=== PATIENT | female | born 1975 | race Caucasian/White ===

== ENCOUNTER 2016-06-16 11:38 | Emergency (ER) | payer OTHER ==
--- NOTE | 2016-06-16 12:53 | DIAGNOSTIC IMAGING REPORT ---
PROCEDURE: CT HEAD WITHOUT CONTRAST INDICATION: Weakness and right mid extremity paresthesia. TECHNIQUE: Noncontrast axial images with sagittal and coronal reformations. COMPARISON: None. FINDINGS: Allowing for mild motion, brain and ventricles are normal. No evidence of an acute process or hemorrhage. Sinuses and mastoids are normal. IMPRESSION: 1. Negative head CT. 2. Findings discussed with CUONG Tenorio at [address] scans at this facility use dose modulation, iterative reconstruction, and/or weight-based dosing when appropriate to reduce radiation dose to as low as reasonably achievable.
--- NOTE | 2016-06-16 14:26 | ED CLINICAL REPORT ---
Clinical Report - Physicians/Mid Levels [facility] [address] [place] [address] 06/16/2016 11:39 Patient: ALLEY SUTTON Time Seen: 1207; initial patient contact, initial documentation, patient care assumed. Arrived- By ambulance. Historian- patient. HISTORY OF PRESENT ILLNESS Chief Complaint: WEAKNESS. The patient has had new onset of localized weakness of the right arm (mild), right hand (mild), right leg (mild) and right foot (mild). No numbness, tingling, impaired speech or swallowing or visual disturbance. No recent fall. The patient has had difficulty walking. This started today and is still present. (none). No dizziness, altered mental status, seizure or blackouts. Usually is alert and oriented X3 and has normal mobility. Similar symptoms previously: None. Recent medical care: Not recently seen/assessed. REVIEW OF SYSTEMS No fever, headache, head injury, chest pain or difficulty breathing. No abdominal pain, diarrhea or vomiting. She has had mildly enlarged left neck, left axillary and left inguinal lymph nodes (made appt this week with her pcp for swollen glands). All systems otherwise negative, except as recorded above. PAST HISTORY See nurses notes. ( PROBLEMS: Anxiety Reaction. Asthma. STD - Sexually Transmitted Disease. Nerve Root Compression. Myofascial Strain. Insomnia. Depression. Immunizations. --11:43 Aliyah Moses, R.N. ADDITIONAL SURGERIES: Cholecystectomy. Tonsillectomy. --11:43 Aliyah Moses, R.N.). SOCIAL HISTORY Light tobacco smoker. Occasional alcohol use. History of occasional drug use: marijuana. No recent travel. Is a local resident. FAMILY HISTORY Diabetes in first-degree relative. cva. ADDITIONAL NOTES The nursing notes have been reviewed with agreement regarding the chief complaint, HPI, ROS, PMH and patient medications and allergies. PHYSICAL EXAM Vital Signs: 06/16/2016 11:42 BP: 129/78. HR: 65. RR: 18. O2 saturation: 100%. Temp: 98.8 F. Pain level now: 0/10. Have been reviewed as normal and appear to be correct. Appearance: Alert. No acute distress. Head: Head atraumatic. Eyes: Pupils equal, round and reactive to light. ENT: Normal ENT inspection. Airway intact. Pharynx normal. Neck: Normal inspection. Neck supple. CVS: Normal heart rate and rhythm. Heart sounds normal. Pulses normal. Respiratory: No respiratory distress. Breath sounds normal. Abdomen: Soft and nontender. No organomegaly. Mildly obese. Back: Normal inspection. Skin: Skin warm and dry. Normal skin color. No rash. Normal skin turgor. Extremities: Extremities exhibit normal ROM. No lower extremity edema. Neuro: Alert. Oriented X 3. Mood/affect normal. Speech normal. Cranial nerves normal (as tested). No cerebellar findings. No motor deficit. No sensory deficit. Reflexes normal. LABS, X-RAYS, AND EKG CT Head: No acute disease. (IMPRESSION: 1. Negative head CT. 2. Findings discussed with CUONG Tenorio at [address] scans at this facility use dose modulation, iterative reconstruction, and/or weight-based dosing when appropriate to reduce radiation dose to as low as reasonably achievable. Electronically Final signed by:Oscar Parsons MD 06/16/2016 12:50:08 PM). The study was interpreted by the radiologist and discussed with the radiologist. Interpretation time: 12:52. Laboratory Tests: Serum Qualitative: (EDGAR: 06/16/2016 13:25) ( [facility] 06/16/2016 14:01) Final results Test Result Flag Units (Reference) , SERUM NEGATIVE CBC w Diff: (EDGAR: 06/16/2016 13:25) ( MsgRcvd 06/16/2016 13:38) Final results Test Result Flag Units (Reference) WHITE BLOOD COUNT 12.2 H K/uL (4.5-11.5) RED BLOOD COUNT 4.30 M/uL (4.00-5.20) HEMOGLOBIN 13.3 gm/dL (12.0-16.0) HEMATOCRIT 39.5 % (36.0-46.0) MEAN CELL VOLUME 92 fL (80-100) MEAN CORPUSCULAR HGB 31 pg (26-34) MEAN CORPUSCULAR HGB CONC 34 g/dL (31-37) RED CELL DISTRIBUTION WIDTH 12.9 % (11.6-14.8) PLATELET COUNT 285 K/uL (150-400) NEUTROPHIL % 68.6 % (50-75) LYMPH % 24.1 L % (25-40) MONO % 4.5 % (3-14) EOSINOPHIL % 2.4 % (0-4) BASOPHIL % 0.4 % (0-2) CMP: (EDGAR: 06/16/2016 13:25) ( MsgRcvd 06/16/2016 14:12) Final results Test Result Flag Units (Reference) GLUCOSE 90 mg/dL (70-110) BUN 8 mg/dL (7-18) CREATININE 0.7 mg/dL (0.6-1.3) Estimated GFR >60 mL/min Estimated GFR- >60 mL/min Note: Persistent reduction over 3 months in eGFR<60 mL/min/1.73 m2 defines CKD. Patients with eGFR values>=60 mL/min/1.73 m2 may also have CKD if evidence ofpersistent proteinuria. Additional information may be foundat www.kidney.org. SODIUM 144 mmol/L (136-145) POTASSIUM 3.9 mmol/L (3.5-5.1) CHLORIDE 110 H mmol/L (98-107) CARBON DIOXIDE 23 mmol/L (21-32) CALCIUM 8.0 L mg/dL (8.5-10.1) TOTAL PROTEIN 6.5 g/dL (6.4-8.2) ALBUMIN 3.1 L g/dL (3.3-5.0) BILIRUBIN, TOTAL 0.1 mg/dL (0.0-1.0) ALKALINE PHOSPHATASE 72 U/L (46-116) AST (SGOT) 12 L U/L (15-37) ALT (SGPT) 14 U/L (12-78) . PROGRESS AND PROCEDURES Course of Care: nurse reporting pt is on verge of panic attack. 06/16/2016 12:42 BP: 125/59. HR: 66. RR: 12. O2 saturation: 100%. Patient counseled in person regarding the patient's stable condition, test results and diagnosis. 14:22. Differential Diagnosis: Other possible considerations: cva, tia, electrolyte imbalance. Above considerations are based on history, physical exam, reassessment, laboratory data and other information. Differential diagnosis was discussed with patient. Disposition: Discharged home in good and improved condition (14:25). Condition: good and stable. CLINICAL IMPRESSION Acute weakness of the right upper extremity and right lower extremity. Anxiety reaction. No hyperventilation. INSTRUCTIONS Warnings: GENERAL WARNINGS: Return or contact your physician immediately if your condition worsens or changes unexpectedly, if not improving as expected, or if other problems arise. Specifically return if problem worsens. Follow-up: Follow up with your doctor as scheduled even if well. Summary of care provided to patient. Understanding of the discharge instructions verbalized by patient. (Electronically signed by Stephie Stokes A.R.N.P. 06/16/2016 14:58)
--- NOTE | 2016-06-16 14:26 | ED ORDER SUMMARY ---
..... Patient: ALLEY SUTTON OrderSheet [facility] VisitID: [id number] [address] [place] [address] 40y, F Registration Date/Time: 06/16/2016 ORDER SHEET Weight: 113.3 kg (stated) Allergies: E-Mycin GENERAL ORDERS: CT Head wo Cont Urgent (12:17 06/16/2016 HBivens A.R.N.P.) (Ack 12:19 TBergley) (12:51 MWinterer R.N.) CBC w Diff Urgent (12:17 06/16/2016 HBivens A.R.N.P.) (Ack 12:19 TBergley) (13:15 TBergley) CMP Urgent (12:17 06/16/2016 HBivens A.R.N.P.) (Ack 12:19 TBergley) (13:15 TBergley) Serum Qualitative Urgent (12:17 06/16/2016 HBivens A.R.N.P.) (Ack 12:19 TBergley) (13:15 TBergley) MEDICATION ORDERS: IV FLUIDS: IV NS : initial bolus 1000 mL (1000 mL/hr), then none - (NOW) (12:17 06/16/2016 HBivens A.R.N.P.) (Ack 12:24 MWinterer R.N.) (12:51 MWinterer R.N.) IV Saline Lock (12:17 06/16/2016 HBivens A.R.N.P.) (Ack 12:24 MWinterer R.N.) (12:51 MWinterer R.N.) Ativan IV 1 mg (HIGH ALERT MEDICATION, NOW) (13:55 06/16/2016 HBivens A.R.N.P.) (Ack 13:57 MWinterer R.N.) (14:01 MWinterer R.N.) ORDER SHEET NOTES: [Electronically signed by Stephie StokesRGaurangN.PGaurang (14:58 06/16/2016)] [Electronically signed by Aliyah Moses R.N. (15:06/16/2016)] [Electronically locked/signed by Aliyah Moses R.N. (15:06/16/2016)]
--- NOTE | 2016-06-16 14:26 | ED ORDER SUMMARY ---
..... Patient: ALLEY SUTTON OrderSheet [facility] VisitID: [id number] [address] [place] [address] 40y, F Registration Date/Time: 06/16/2016 ORDER SHEET Weight: 113.3 kg (stated) Allergies: E-Mycin GENERAL ORDERS: CT Head wo Cont Urgent (12:17 06/16/2016 HBivens A.R.N.P.) (Ack 12:19 TBergley) (12:51 MWinterer R.N.) CBC w Diff Urgent (12:17 06/16/2016 HBivens A.R.N.P.) (Ack 12:19 TBergley) (13:15 TBergley) CMP Urgent (12:17 06/16/2016 HBivens A.R.N.P.) (Ack 12:19 TBergley) (13:15 TBergley) Serum Qualitative Urgent (12:17 06/16/2016 HBivens A.R.N.P.) (Ack 12:19 TBergley) (13:15 TBergley) MEDICATION ORDERS: IV FLUIDS: IV NS : initial bolus 1000 mL (1000 mL/hr), then none - (NOW) (12:17 06/16/2016 HBivens A.R.N.P.) (Ack 12:24 MWinterer R.N.) (12:51 MWinterer R.N.) IV Saline Lock (12:17 06/16/2016 HBivens A.R.N.P.) (Ack 12:24 MWinterer R.N.) (12:51 MWinterer R.N.) Ativan IV 1 mg (HIGH ALERT MEDICATION, NOW) (13:55 06/16/2016 HBivens A.R.N.P.) (Ack 13:57 MWinterer R.N.) (14:01 MWinterer R.N.) ORDER SHEET NOTES: [Electronically signed by Stephie StokesRGaurangN.PGaurang (14:58 06/16/2016)] [Electronically signed by Aliyah Moses R.N. (15:06/16/2016)] [Electronically locked/signed by Aliyah Moses R.N. (15:06/16/2016)]
--- NOTE | 2016-06-16 14:26 | ED NURSING NOTES ---
Clinical Report - Nurses [facility] [address] [place] [address] 06/16/2016 11:39 Patient: ALLEY SUTTON TRIAGE Acuity: LEVEL 3. Chief Complaint: WEAKNESS. Alert. No acute distress. JOSE COMA SCORE: [place] Coma Scale: 15- eyes open spontaneously (4); best verbal response- oriented x 4 (5); best motor response- obeys commands (6). --11:48 Aliyah Moses R.N. 11:42 06/16/16. BP: 129/78. HR: 65. RR: 18. O2 saturation: 100% on room air. Temp: 98.8 F (oral). Pain level now: 0/10. --11:48 Aliyah Moses R.N. Weight: 113.3 kg stated. Height/Length: 65 inches Per Patient. BMI: 41.6. --11:46 Aliyah Moses R.N. Medications Albuterol Sulfate Inhalation. Ambien Oral 10 mg, at bedtime. LamoTRIgine Oral. Xanax Oral. --11:43 Aliyah Moses R.N. Medication/allergy information source: the patient. --11:48 Aliyah Moses R.N. Allergies E-Mycin. --11:43 Aliyah Moses R.N. History Arrived by EMS. Historian: EMS and patient. Unaccompanied. Primary physician (Huseyin). This started just prior to arrival. ( Pt reports left side flank pain, and weakness to her right side.). 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 Finger stick glucose performed (98). Pre-hospital 12-lead EKG performed on-scene. EKG consistent with normal tracing. PAST MEDICAL HX: Immunizations: up-to-date. Last normal menstrual period- years ago. Uses contraception regularly. Not sexually active. SOCIAL HX: Current every day light tobacco smoker- less than 1/2 a pack per day. History of occasional drug use: marijuana. No alcohol use. FALL RISK ASSESSMENT: Fall risk assessment completed. No fall risk identified. NUTRITIONAL RISK ASSESSMENT: The nutritional risk assessment revealed no deficiencies. FUNCTIONAL ASSESSMENT: Functional assessment: no impairments noted. LEARNING NEEDS ASSESSMENT: The learning needs assessment revealed no barriers. SKIN INTEGRITY ASSESSMENT: Skin integrity risk assessment completed. No skin integrity risk identified. --11:48 Aliyah Moses R.N. 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 --11:50 Aliyah Moses R.N. PROBLEMS: Anxiety Reaction. Asthma. STD - Sexually Transmitted Disease. Nerve Root Compression. Myofascial Strain. Insomnia. Depression. Immunizations. --11:43 Aliyah Moses R.N. ADDITIONAL SURGERIES: Cholecystectomy. Tonsillectomy. --11:43 Aliyah Moses R.N. Assessment GENERAL / NEURO / PSYCH: Alert. Oriented X 4. Appears in no acute distress. Patient appears calm and cooperative. RESPIRATORY: Respirations not labored. CVS: Capillary refill less than 2 seconds. GI / : Abdomen soft and nontender. SKIN: Mucous membranes are pink. Skin is warm and dry. --11:48 Aliyah Moses R.N. Interventions ID band on patient. To treatment room. --11:48 Aliyah Moses R.N. PHYSICAL ASSESSMENT 11:48 06/16/16. Ambulatory to room. GENERAL / NEURO / PSYCH: Alert. Oriented X 4. Appears in no acute distress. HEENT: Pupils equal, round and reactive to light. No facial asymmetry noted. Mucous membranes are pink. RESPIRATORY: Respirations not labored. CVS: Capillary refill less than 2 seconds. Pulses within normal limits. GI / : Abdomen soft and nontender. SKIN: Skin intact. Skin is warm and dry. Normal skin turgor. --11:48 Aliyah Moses R.N. NURSING PROGRESS NOTES 11:49 06/16/16. Patient gowned. Reassurance given. Two patient identifiers checked. Call light placed in reach. Side rails up x 2. Patient ready for evaluation- chart flagged and ED physician notified. --11:49 Aliyah Moses R.N. 12:42 06/16/16. BP: 125/59. HR: 66. RR: 12. O2 saturation: 100%. --12:43 Aliyah Moses R.N. 12:51 06/16/2016 Site #1 started via IV in the left forearm with an 20g angiocath, with aseptic technique and good blood return; one attempt. Saline lock flushed with 10 mL saline. --12:51 Aliyah Moses R.N. 12:51 06/16/2016 Started bag #1 1000 mL IV Fluids IV NS (Saline); at 999 mL/hr over 1 hour(s) via site #1 via IV pump. Allergies verified and confirmed 5 rights. IV patency established. IV site checked: no pain, redness, or swelling. IV flushed thoroughly pre- and post-medication administration. --12:51 Aliyah Moses R.N. 14:00 06/16/2016 IV Fluids IV NS Discontinued: bag #1 infused. Total amount infused: 1000 mL. IV patency established. IV site checked: no pain, redness, or swelling. IV flushed thoroughly. --15:22 Aliyah Moses R.N. 14:01 06/16/2016 Ativan (LORazepam) IVP 1 mg given over 1 minute(s) via site #1. Allergies verified, confirmed 5 rights and sedative warning given to the patient. IV patency established. IV site checked: no pain, redness, or swelling. IV flushed thoroughly pre- and post-medication administration. IVP given by RN. --14:01 Aliyah Moses R.N. DISPOSITION / DISCHARGE 15:17 06/16/16. BP: 127/87. HR: 72. RR: 16. O2 saturation: 98% on room air. Temp: 98.4 F (oral). Pain level now: 0/10. --15:20 Aliyah Moses R.N. Departure time: 14:55 Jun 16 2016. Condition at departure: improved and stable. No learning barriers present. Discharge instructions provided and reviewed with the patient. Patient verbalized understanding. Written instructions provided in Pakistani. The patient was discharged by the physician. She was discharged home and accompanied by bacteriologist soil. She left the Emergency Department ambulatory and via private vehicle. [employer] Manager driving. --15:20 Aliyah Moses R.N. 14:50 06/16/2016 IV Saline Lock Drip IV Discontinued: bag #1 infused upon discharge. Total amount infused: 1000 mL. IV patency established. IV site checked: no pain, redness, or swelling. IV flushed thoroughly. --15:21 Aliyah Moses R.N. 15:10 06/16/2016 Site #1 removed upon discharge. Catheter intact. Manual pressure and bandage applied. --15:20 Aliyah Moses R.N. Locked/Released at 06/16/2016 15:22 by Aliyah Moses R.N.
--- NOTE | 2016-06-16 14:26 | ED NURSING NOTES ---
Clinical Report - Nurses [facility] [address] [place] [address] 06/16/2016 11:39 Patient: ALLEY SUTTON TRIAGE Acuity: LEVEL 3. Chief Complaint: WEAKNESS. Alert. No acute distress. JOSE COMA SCORE: [place] Coma Scale: 15- eyes open spontaneously (4); best verbal response- oriented x 4 (5); best motor response- obeys commands (6). --11:48 Aliyah Moses R.N. 11:42 06/16/16. BP: 129/78. HR: 65. RR: 18. O2 saturation: 100% on room air. Temp: 98.8 F (oral). Pain level now: 0/10. --11:48 Aliyah Moses R.N. Weight: 113.3 kg stated. Height/Length: 65 inches Per Patient. BMI: 41.6. --11:46 Aliyah Moses R.N. Medications Albuterol Sulfate Inhalation. Ambien Oral 10 mg, at bedtime. LamoTRIgine Oral. Xanax Oral. --11:43 Aliyah Moses R.N. Medication/allergy information source: the patient. --11:48 Aliyah Moses R.N. Allergies E-Mycin. --11:43 Aliyah Moses R.N. History Arrived by EMS. Historian: EMS and patient. Unaccompanied. Primary physician (Huseyin). This started just prior to arrival. ( Pt reports left side flank pain, and weakness to her right side.). 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 Finger stick glucose performed (98). Pre-hospital 12-lead EKG performed on-scene. EKG consistent with normal tracing. PAST MEDICAL HX: Immunizations: up-to-date. Last normal menstrual period- years ago. Uses contraception regularly. Not sexually active. SOCIAL HX: Current every day light tobacco smoker- less than 1/2 a pack per day. History of occasional drug use: marijuana. No alcohol use. FALL RISK ASSESSMENT: Fall risk assessment completed. No fall risk identified. NUTRITIONAL RISK ASSESSMENT: The nutritional risk assessment revealed no deficiencies. FUNCTIONAL ASSESSMENT: Functional assessment: no impairments noted. LEARNING NEEDS ASSESSMENT: The learning needs assessment revealed no barriers. SKIN INTEGRITY ASSESSMENT: Skin integrity risk assessment completed. No skin integrity risk identified. --11:48 Aliyah Moses R.N. Treatment TINNER AUTOMATIC: Medications given- ASA. --11:50 Aliyah Moses R.N. PROBLEMS: Anxiety Reaction. Asthma. STD - Sexually Transmitted Disease. Nerve Root Compression. Myofascial Strain. Insomnia. Depression. Immunizations. --11:43 Aliyah Moses R.N. ADDITIONAL SURGERIES: Cholecystectomy. Tonsillectomy. --11:43 Aliyah Moses R.N. Assessment GENERAL / NEURO / PSYCH: Alert. Oriented X 4. Appears in no acute distress. Patient appears calm and cooperative. RESPIRATORY: Respirations not labored. CVS: Capillary refill less than 2 seconds. GI / : Abdomen soft and nontender. SKIN: Mucous membranes are pink. Skin is warm and dry. --11:48 Aliyah Moses R.N. Interventions ID band on patient. To treatment room. --11:48 Aliyah Moses R.N. PHYSICAL ASSESSMENT 11:48 06/16/16. Ambulatory to room. GENERAL / NEURO / PSYCH: Alert. Oriented X 4. Appears in no acute distress. HEENT: Pupils equal, round and reactive to light. No facial asymmetry noted. Mucous membranes are pink. RESPIRATORY: Respirations not labored. CVS: Capillary refill less than 2 seconds. Pulses within normal limits. GI / : Abdomen soft and nontender. SKIN: Skin intact. Skin is warm and dry. Normal skin turgor. --11:48 Aliyah Moses R.N. NURSING PROGRESS NOTES 11:49 06/16/16. Patient gowned. Reassurance given. Two patient identifiers checked. Call light placed in reach. Side rails up x 2. Patient ready for evaluation- chart flagged and ED physician notified. --11:49 Aliyah Moses R.N. 12:42 06/16/16. BP: 125/59. HR: 66. RR: 12. O2 saturation: 100%. --12:43 Aliyah Moses R.N. 12:51 06/16/2016 Site #1 started via IV in the left forearm with an 20g angiocath, with aseptic technique and good blood return; one attempt. Saline lock flushed with 10 mL saline. --12:51 Aliyah Moses R.N. 12:51 06/16/2016 Started bag #1 1000 mL IV Fluids IV NS (Saline); at 999 mL/hr over 1 hour(s) via site #1 via IV pump. Allergies verified and confirmed 5 rights. IV patency established. IV site checked: no pain, redness, or swelling. IV flushed thoroughly pre- and post-medication administration. --12:51 Aliyah Moses R.N. 14:00 06/16/2016 IV Fluids IV NS Discontinued: bag #1 infused. Total amount infused: 1000 mL. IV patency established. IV site checked: no pain, redness, or swelling. IV flushed thoroughly. --15:22 Aliyah Moses R.N. 14:01 06/16/2016 Ativan (LORazepam) IVP 1 mg given over 1 minute(s) via site #1. Allergies verified, confirmed 5 rights and sedative warning given to the patient. IV patency established. IV site checked: no pain, redness, or swelling. IV flushed thoroughly pre- and post-medication administration. IVP given by RN. --14:01 Aliyah Moses R.N. DISPOSITION / DISCHARGE 15:17 06/16/16. BP: 127/87. HR: 72. RR: 16. O2 saturation: 98% on room air. Temp: 98.4 F (oral). Pain level now: 0/10. --15:20 Aliyah Moses R.N. Departure time: 14:55 Jun 16 2016. Condition at departure: improved and stable. No learning barriers present. Discharge instructions provided and reviewed with the patient. Patient verbalized understanding. Written instructions provided in Malagasy. The patient was discharged by the physician. She was discharged home and accompanied by cost accounting manager. She left the Emergency Department ambulatory and via private vehicle. Greige Mender driving. --15:20 Aliyah Moses R.N. 14:50 06/16/2016 IV Saline Lock Drip IV Discontinued: bag #1 infused upon discharge. Total amount infused: 1000 mL. IV patency established. IV site checked: no pain, redness, or swelling. IV flushed thoroughly. --15:21 Aliyah Moses R.N. 15:10 06/16/2016 Site #1 removed upon discharge. Catheter intact. Manual pressure and bandage applied. --15:20 Aliyah Moses R.N. Locked/Released at 06/16/2016 15:22 by Aliyah Moses R.N.
--- NOTE | 2016-06-16 15:22 | ED MED RECONCILIATION SUMMARY ---
Patient: ALLEY SUTTON Medication Reconciliation Report [facility] VisitID: [id number] [address] [place] [address] 40y, F Registration Date/Time: 06/16/2016 Weight: 113.3 kg Height/Length: 65 in. BMI: 41.6 ALLERGIES: E-Mycin The patient's Home Medications are listed below: THE FOLLOWING MEDICATIONS NEED TO BE RECONCILED: Albuterol Sulfate Inhalation Ambien Oral 10 mg, at bedtime LamoTRIgine Oral Xanax Oral The source(s) of the original Home Medication information: patient The following Medications were given to the patient in the Emergency Department: IV NS IV Fluids bolus 0, then 999 mL/hr, administered: 06/16/2016 12:51:00 PM Ativan [IVP] IVP 1 mg, administered: 06/16/2016 2:01:00 PM The following Medications were prescribed to the patient: None.
--- NOTE | 2016-06-16 15:22 | ED MED RECONCILIATION SUMMARY ---
Patient: ALLEY SUTTON Medication Reconciliation Report [facility] VisitID: [id number] [address] [place] [address] 40y, F Registration Date/Time: 06/16/2016 Weight: 113.3 kg Height/Length: 65 in. BMI: 41.6 ALLERGIES: E-Mycin The patient's Home Medications are listed below: THE FOLLOWING MEDICATIONS NEED TO BE RECONCILED: Albuterol Sulfate Inhalation Ambien Oral 10 mg, at bedtime LamoTRIgine Oral Xanax Oral The source(s) of the original Home Medication information: patient The following Medications were given to the patient in the Emergency Department: IV NS IV Fluids bolus 0, then 999 mL/hr, administered: 06/16/2016 12:51:00 PM Ativan [IVP] IVP 1 mg, administered: 06/16/2016 2:01:00 PM The following Medications were prescribed to the patient: None.
--- NOTE | 2016-06-16 15:22 | ED MAR SUMMARY ---
..... Medication Administration Record [facility] [address] [place] [address] Patient: ALLEY SUTTON Visit ID: [id number] 40y, F Weight: 113.3 kg Height/Length: 65 in BMI: 41.6 ALLERGIES: E-Mycin Start 12:51 06/16/2016 Aliyah Moses R.N., Stop 14:00 06/16/2016 Aliyah Moses R.N. Medication Administered: IV NS (SALINE), Dose: IV Fluids over 1 hour(s), Rate: 999 mL/hr, Dispensed: 1000 mL bag, Site: #1 left forearm. Medication Ordered: IV NS : initial bolus 1000 mL (1000 mL/hr), then none - (NOW). Given 14:01 06/16/2016 Aliyah Moses R.N. Medication Administered: ATIVAN [IVP] (LORAZEPAM), Dose: 1 mg IVP over 1 minute(s), Site: #1 left forearm. Medication Ordered: Ativan IV 1 mg (HIGH ALERT MEDICATION, NOW).
--- NOTE | 2016-06-16 15:22 | ED MAR SUMMARY ---
..... Medication Administration Record [facility] [address] [place] [address] Patient: ALLEY SUTTON Visit ID: [id number] 40y, F Weight: 113.3 kg Height/Length: 65 in BMI: 41.6 ALLERGIES: E-Mycin Start 12:51 06/16/2016 Aliyah Moses R.N., Stop 14:00 06/16/2016 Aliyah Moses R.N. Medication Administered: IV NS (SALINE), Dose: IV Fluids over 1 hour(s), Rate: 999 mL/hr, Dispensed: 1000 mL bag, Site: #1 left forearm. Medication Ordered: IV NS : initial bolus 1000 mL (1000 mL/hr), then none - (NOW). Given 14:01 06/16/2016 Aliyah Moses R.N. Medication Administered: ATIVAN [IVP] (LORAZEPAM), Dose: 1 mg IVP over 1 minute(s), Site: #1 left forearm. Medication Ordered: Ativan IV 1 mg (HIGH ALERT MEDICATION, NOW).
--- NOTE | 2016-06-16 15:22 | ED DISCHARGE INSTRUCTIONS ---
Patient: ALLEY SUTTON General Instructions [facility] VisitID: [id number] [address] [place] [address] 40y, F Registration Date/Time: 06/16/2016 Acute weakness of the right upper extremity and right lower extremity. Anxiety reaction. No hyperventilation. INSTRUCTIONS Warnings: GENERAL WARNINGS: Return or contact your physician immediately if your condition worsens or changes unexpectedly, if not improving as expected, or if other problems arise. Specifically return if problem worsens. Follow-up: Follow up with your doctor as scheduled even if well. Summary of care provided to patient. Understanding of the discharge instructions verbalized by patient. ADDITIONAL INFORMATION Stress Reaction Anxiety is the feeling we all get when we think something bad might happen. It is a normal response to stress and usually causes only a mild reaction. When anxiety becomes more severe, emotions may interfere with daily life. In some cases, you may not even be aware of what it is youre anxious about! During an anxiety reaction, you may feel like you are helpless, nervous, depressed or irritable. Your body may show signs of anxiety in many ways. You may experience dry mouth, shakiness, dizziness, weakness, trouble breathing, chest pressure, headache, nausea, diarrhea, tiredness, inability to sleep or sexual problems. Home Care: 1) Try to locate the sources of stress in your life. They may not be obvious! These may include: -- Daily hassles of life which pile up (traffic jams, missed appointments, car troubles, etc.) -- Major life changes, both good (new baby, job promotion) and bad (loss of job, loss of loved one) -- Overload: feeling that you have too many responsibilities and can't take care of all of them at once -- Feeling helpless, feeling that your problems are beyond what youre able to solve 2) Notice how your body reacts to stress. Learn to listen to your body signals. This will help you take action before the stress becomes severe. 3) When you can, do something about the source of your stress. (Avoid hassles, limit the amount of change that happens in your life at one time and take a break when you feel overloaded). 4) Unfortunately, many stressful situations cannot be avoided. It is necessary to learn HOW TO MANAGE STRESS better. There are many proven methods that will reduce your anxiety. These include simple things like exercise, good nutrition and adequate rest. Also, there are certain techniques that are helpful: relaxation and breathing exercises, visualization, biofeedback and meditation. For more information about this, consult your doctor or go to a local bookstore and review the many books and tapes available on this subject. Follow Up If you feel that your anxiety is not responding to self-help measures, contact your doctor or make an appointment with a counselor. Get Prompt Medical Attention if any of the following occur: -- Your symptoms get worse -- Chest pain or trouble breathing -- Severe headache not relieved by rest and mild pain reliever -- Rapid or irregular heartbeat, fainting Panic Attack A panic attack is an extreme fear reaction that comes on for no apparent reason. Symptoms may include pounding or racing heartbeat, shortness of breath, dizziness, weakness and sweating. There is usually a fear that something terrible will happen or that you may . The attack may last a few minutes up to a few hours. Between attacks things will seem quite normal. This condition has a psychological cause and can be treated with the help of a therapist or psychiatrist. Medication is often used and can be very helpful for this problem. Home Care: Try to identify the sources of stress in your life. It may not be obvious! These may include: Daily hassles of life which pile up (traffic jams, missed appointments, car troubles, etc.). Major life changes, both good (new baby, job promotion) and bad (loss of job, loss of loved one). Overload: feeling that you have too many responsibilities and can't take care of everything at once. Helplessness: feeling like your problems are too much for you to handle. Notice how your body reacts to stress. Learn to listen to your body signals so that you can take action before the stress becomes severe. When possible, AVOID or REDUCE THE CAUSE OF STRESS. Avoid hassles, limit the amount of change that is happening in your life at one time or take a break when you feel overloaded. Unfortunately, many stressful situations cannot be avoided. Therefore, it is necessary to LEARN HOW TO MANAGE STRESS better. There are many proven methods that work and will reduce your anxiety. These include simple things like exercise, good nutrition and adequate rest. Also, there are certain techniques that are helpful: relaxation and breathing exercises, visualization, biofeedback, meditation or simply taking some time-out to clear your mind. For more information about this, consult your doctor or go to a local bookstore and review the many books and tapes available on this subject. Follow Up with your doctor or a therapist as advised. Get Prompt Medical Attention if any of the following occur: Worsening of your symptoms to the point of feeling [id number] A change in the type of pain: if it feels different, becomes more severe, lasts longer, or begins to spread into your shoulder, arm, neck, jaw or back Shortness of breath or increased pain with breathing Increasing feeling of weakness or dizziness Fainting Cough with dark colored sputum (phlegm) or blood Fever of 100.4F (38C) or higher, or as directed by your healthcare provider Swelling, pain or redness in one leg Weakness [Uncertain Cause] Based on your exam today, the exact cause of your weakness is not certain. However, your weakness does not seem to be a sign of a serious illness at this time. Sometimes the signs of a serious illness take more time to appear. Therefore, please watch for the warning signs listed below. Home Care: 1) Rest at home today. Do not over-exert yourself. 2) Take your medicine as prescribed. 3) For the next few days, drink extra fluids (unless your doctor wants you to restrict fluids for other reasons). Do not skip meals. Follow Up with your doctor or as advised if you are not starting to feel better within TWO days. Get Prompt Medical Attention if any of the following occur: Worsening of your symptoms Chest, arm, neck, jaw or upper back pain Dizziness or fainting Trouble breathing Unable to eat or drink normal amounts Nausea, frequent vomiting, frequent diarrhea Abdominal pain Numbness or weakness of the face, one arm or one leg Slurred speech, confusion, trouble speaking, walking or seeing Blood in vomit or stool (black or red color) Fever of 100.4 F (38 C) or higher, or as directed by your healthcare provider You have been given the following additional information: Anxiety Reaction Panic Attack Weakness, Unk Cause (Electronically signed by Stephie Stokes A.R.N.P. 06/16/2016 14:58)
== END 2016-06-16 14:55 | disposition home or self-care (01) ==
LOC: ED SRH 11:38
DX: R53.1 Weakness (principal); F41.9 Anxiety disorder, unspecified; F17.200 Nicotine dependence, unspecified, uncomplicated
CPT/HCPCS: 90100; 95059; 98428